=== PATIENT | male | born 1975 | race Hispanic/Latino ===

== ENCOUNTER 2021-07-26 00:08 | Emergency (ER) | payer BC ==
[2021-07-26 01:55] LABS: HIV (1/2) Antibody/Antigen Non-Reactive (NonReactive); HIV 1/2 INDEX 0.16 S/CO (<1.00); Hep C IgG Ab Non-Reactive (NonReactive); Hep C Index 0.04 S/CO (0-0.79)
[2021-07-26 02:23] LABS: HBSAB Concentration 85.51 mIU/mL; Hep B Surf AB Reactive (NonReactive)
== END 2021-07-26 02:13 ==
LOC: ERS 00:08
DX: Z77.21 Contact with and (suspected) exposure to potentially hazardous body fluids (principal); I10 Essential (primary) hypertension; Z79.899 Other long term (current) drug therapy
CPT/HCPCS: 86706; 86803; 87389; 99283